=== PATIENT | male | born 1970 | race Hispanic/Latino ===

== ENCOUNTER 2016-06-27 13:09 | Observation (INO) | payer BC, OTHER ==
[2016-06-27 13:11] VITALS: BMI 23.3
--- NOTE | 2016-06-27 13:37 | ED PDOC ---
Arrival/HPI - General Chief Complaint: Seizure Time Seen by Provider: 06/27/16 13:14 Historian: Patient, EMS - Critical Care Critical Care Minutes: 30 minutes - History of Present Illness Narrative History of Present Illness (Text): 06/27/16 13:37 A 45 year old male, who denies any past medical history, brought in by EMS to the emergency department after new onset seizure. Patient was walking at work. Seizure lasted about three minutes and EMS reports giving him glucose. Patient reports no previous episodes of seizure and states he remembers episode and being caught, no head trauma. He also notes he was shaking and didn't bite tongue. EMS reported patient told them he didn't remember seizure. EMS notes no foaming at mouth. Patient reports not eating today and denies any drug or alcohol use. Patient denies any pain, fevers, cough, runny nose, nausea, recent travels, changes in stool or any other complaints at this time. Time/Duration: Prior to Arrival Symptom Onset: Sudden Symptom Course: Resolved Activities at Onset: Rest Context: Work Past Medical History - Provider Review Nursing Documentation Reviewed: Yes - Infectious Disease Hx of Infectious Diseases: None - Tetanus Immunization Tetanus Immunization: Unknown - Cardiac Hx Cardiac Disorders: No - Pulmonary Hx Respiratory Disorders: Yes (SMOKES 1 1/2 PPD) - Neurological Hx Neurological Disorder: Yes Hx Seizures: Yes (NEW ONSET 03-21-16) Other/Comment: pt denies seizures or keppra use, as per chart. - HEENT Hx HEENT Disorder: Yes (DEVIATED SEPTUM WITH SX) - Renal Hx Renal Disorder: No - Endocrine/Metabolic Hx Endocrine Disorders: No - Hematological/Oncological Hx Blood Disorders: No - Integumentary Hx Dermatological Disorder: Yes (TATTOS TO LEFT UPPER ARM) - Musculoskeletal/Rheumatological Hx Musculoskeletal Disorders: Yes (FOOT DROP LEFT FOOT WITH BRACE,L KNEE TORN MENISCUS,) Hx Falls: Yes Hx Fractures: Yes (LUMBAR 6 PER PT.) Hx Unsteady Gait: Yes - Gastrointestinal Hx Gastrointestinal Disorders: No - Genitourinary/Gynecological Hx Genitourinary Disorders: No - Psychiatric Hx Depression: No Hx Emotional Abuse: No Hx Physical Abuse: No Hx Substance Use: No (pt denies) - Anesthesia Hx Anesthesia: Yes Hx Anesthesia Reactions: No - Suicidal Assessment Feels Threatened In Home Enviroment: No Family/Social History - Physician Review Nursing Documentation Reviewed: Yes Family/Social History: No Known Family HX Smoking Status: Heavy Smoker > 10 Cigarettes Daily Hx Alcohol Use: No (pt denies) Hx Substance Use: No (pt denies) Allergies/Home Meds Allergies/Adverse Reactions: Allergies No Known Allergies Allergy (Verified 06/27/16 13:11) Review of Systems - Physician Review All systems were reviewed & negative as marked: Yes - Review of Systems Constitutional: absent: Fevers Eyes: Normal ENT: absent: Rhinorrhea Respiratory: absent: Cough Cardiovascular: Normal Gastrointestinal: absent: Stool Changes, Nausea Genitourinary Male: Normal Musculoskeletal: Normal Skin: Normal Neurological: Seizure Endocrine: Normal Hemo/Lymphatic: Normal Psychiatric: Normal Physical Exam Vital Signs Reviewed: Yes Vital Signs Temp Pulse Resp BP Pulse Ox 06/27/16 15:54 98.3 F 85 18 117/71 100 06/27/16 13:22 98.4 F 92 H 16 124/75 99 Temperature: Afebrile Blood Pressure: Normal Pulse: Regular Respiratory Rate: Normal Appearance: Positive for: Well-Appearing, Non-Toxic, Comfortable Pain Distress: None Mental Status: Positive for: Alert and Oriented X 3 Finger Stick Blood Glucose: 158 Medical Decision Making ED Course and Treatment: 06/27/16 13:34 Impression: A 45 year old male presents to emergency department after seizure. Differential Diagnosis included but are not limited to: Plan: -- EKG -- CT head -- labs -- Urinalysis -- Reassess and disposition Prior Visits: Notes and results from previous visits were reviewed. Patient last reported to emergency department on 03/21/16 for evaluation after episode of seizure. Patient was admitted to telemetry bed. Discharged on . Progress Notes: EKG: Ordered, reviewed, and independently interpreted the EKG. Rate : 100 BPM Rhythm : NSR Interpretation : No ST-segment elevations or depressions, no T-wave inversions, normal intervals. Comparison : No previous EKG for comparison. CT head: Creator : Marisa Sultana IMPRESSION: No evidence of acute intracranial hemorrhage intracranial collection mass effect or midline shift. No significant interval change since the previous exam. - Lab Interpretations Lab Results: 06/27/16 13:30 06/27/16 13:30 Lab Results 06/27/16 14:30: Urine Opiates Screen Negative, Urine Methadone Screen Negative, Ur Barbiturates Screen Negative, Ur Phencyclidine Scrn Negative, Ur Amphetamines Screen Negative, U Benzodiazepines Scrn Negative, U Oth Cocaine Metabols Negative, U Cannabinoids Screen Negative 06/27/16 14:30: Urine Color Straw, Urine Appearance Clear, Urine pH 7.0, Ur Specific [place] <= 1.005, Urine Protein Negative, Urine Glucose (UA) Negative, Urine Ketones Negative, Urine Blood Negative, Urine Nitrate Negative, Urine Bilirubin Negative, Urine Urobilinogen 0.2, Ur Leukocyte Esterase Negative 06/27/16 14:22: Magnesium 1.9 06/27/16 13:30: Alcohol, Quantitative < 10 06/27/16 13:30: Sodium 132, Potassium 3.2 L, Chloride 93 L, Carbon Dioxide 27, Anion Gap 15, BUN 4 L, Creatinine 0.6, Est GFR ( Amer) > 60, Est GFR (Non -Af Amer) > 60, Random Glucose 150 H, Calcium 9.6, Total Bilirubin 1.3, AST 69 H , ALT 47, Alkaline Phosphatase 79, Total Protein 6.8, Albumin 4.1, Globulin 2.8 , Albumin/Globulin Ratio 1.5 06/27/16 13:30: WBC 5.2, RBC 4.21, Hgb 14.0, Hct 39.9 L, MCV 94.8, MCH 33.3, MCHC 35.1, RDW 13.1, Plt Count 135, MPV 9.5, Gran % 77.3 H, Lymph % (Auto) 16.8 L, [place] % (Auto) 5.7, Eos % (Auto) 0.2 L, Baso % (Auto) 0.0, Gran # 4.04, Lymph # 0.9 L, [place] # 0.3, Eos # 0.0, Baso # 0.00 I have reviewed the lab results: Yes - RAD Interpretation Radiology Orders: 06/27/16 13:15 HEAD W/O CONTRAST [CT] Stat - EKG Interpretation Interpreted by ED Physician: Yes Type: 12 lead EKG - Medication Orders Current Medication Orders: Discontinued Medications Sodium Chloride (Sodium Chloride 0.9%) 500 mls @ 999 mls/hr IV .Q31M STA Stop: 06/27/16 15:42 Last Admin: 06/27/16 15:39 Dose: 999 mls/hr Levetiracetam (Keppra) 250 mg PO STAT STA Stop: 06/27/16 15:28 Last Admin: 06/27/16 16:11 Dose: 250 mg Potassium Chloride (K-Dur 20 Meq Er Tab) 40 meq PO STAT STA Stop: 06/27/16 14:17 Last Admin: 06/27/16 14:27 Dose: 40 meq ED OBSERVATION Date of observation admission: 06/27/16 Time of observation admission: 13:30 - Observation admission statement Patient is being placed in observation because:: new onset seizure - Goals of Observation Goals of observation are:: symptom control - Progress Note Progress Note: 06/27/16 13:34 Impression: A 45 year old male presents to emergency department after seizure. Differential Diagnosis included but are not limited to: seizure disorder Plan: -- EKG -- CT head -- labs -- Urinalysis -- Reassess and disposition Prior Visits: Notes and results from previous visits were reviewed. Patient last reported to emergency department on 03/21/16 for evaluation after episode of seizure. Patient was admitted to telemetry bed. Discharged on . Progress Notes: EKG: Ordered, reviewed, and independently interpreted the EKG. Rate : 100 BPM Rhythm : NSR Interpretation : No ST-segment elevations or depressions, no T-wave inversions, normal intervals. Comparison : No previous EKG for comparison. 06/27/16 14:02 CT head: Creator : Marisa Sultana IMPRESSION: No evidence of acute intracranial hemorrhage intracranial collection mass effect or midline shift. No significant interval change since the previous exam. 06/27/16 16:31 Patient was observed in the ED for 4 hours since seizure. He has not had any seizures. He feels comfortable and has no complaints. After another interview of questions, he states he does remember now eariler in the year that he had a seizure. He did complete the keppra medication at that time and f/u with Neurology. I discussed this case with Dr. Remedios Velez who states patient did get an EEG then and it was normal. Dr. Velez advised that we start him again on Keppra 250mg BID and to have him follow up with him as an outpatient. Patient feels comfortable with that plan. He feels reliable enough to follow up. Patient is not exhibiting any signs of alcohol withdrawal. He states that he only drinks on occasion now. On exam he has not exhibited any tremors or tongue fasciculation. He is ambulating with a steady gait. He is AAOx3 and not confused. He has capacity to make decisions. His brother was with him in the ED. Patient also understands that he should not drive or operate heavy machinery until he gets cleared by Neurology. He should return to the ED if he develops another seizure. - Scribe Statement The provider has reviewed the documentation as recorded by the Scribe Wilbert Abbott All medical record entries made by the Scribe were at my direction and personally dictated by me. I have reviewed the chart and agree that the record accurately reflects my personal performance of the history, physical exam, medical decision making, and the department course for this patient. I have also personally directed, reviewed, and agree with the discharge instructions and disposition. Disposition/Present on Arrival - Present on Arrival Any Indicators Present on Arrival: No History of DVT/PE: No History of Uncontrolled Diabetes: No Urinary Catheter: No History of Decub. Ulcer: No History Surgical Site Infection Following: None - Disposition Have Diagnosis and Disposition been Completed?: Yes Diagnosis: Seizure Disposition: HOME/ ROUTINE Disposition Time: 16:31 Patient Plan: Discharge Patient Problems: Current Active Problems Problem Status Onset Seizure Acute Condition: IMPROVED Discharge Instructions (ExitCare): Epilepsy (ED) Additional Instructions: Mr Mendez thank you for letting us take care of you today. Your provider was Dr. Castelan. You were treated for Seizure. The emergency medical care you received today was directed at your acute symptoms. If you were prescribed any medication, please fill it and take as directed. It may take several days for your symptoms to resolve. Return to the Emergency Department if your symptoms worsen, do not improve, or if you have any other problems. Please contact your doctor or call one of the physicians/clinics you have been referred to that are listed on the Patient Visit Information form that is included in your discharge packet. Bring any paperwork you were given at discharge with you along with any medications you are taking to your follow up visit. Our treatment cannot replace ongoing medical care by a primary care provider (PCP) outside of the emergency department. Make sure to take Keppra as prescribed and follow up with Dr. Velez Neurology. Please call to make appointment because he will be expecting you. PLEASE DO NOT DRIVE OR OPERATE HEAVY MACHINE UNTIL CLEARED BY NEUROLOGY. Thank you for allowing the [facility] team to be part of your care today. If you had an X-Ray or CT scan: A Radiologist will review the ED reading if any change in treatment is needed we will contact you. If you had a blood, urine, or wound culture: It will take several days for the results, if any change in treatment is needed we will contact you. If you had an STI test: It will take 48 hours for the results. Please call after 1 week if you have not heard back. Prescriptions: Levetiracetam [Keppra] 250 mg PO BID #60 tablet Referrals: Mainor Page MD [Primary Care Provider] - Follow up with primary Forms: WORK NOTE
[2016-06-27 13:39] LABS: ADD MANUAL DIFF? NO
[2016-06-27 13:56] LABS: ALB/GLOB RATIO 1.5 (1.1-1.8); ALKALINE PHOSPHATASE 79 U/L (38-133); ALT/SGPT 47 U/L (7-56); AST/SGOT 69 U/L (15-59); BILIRUBIN,TOTAL 1.3 mg/dL (0.2-1.3); BLOOD UREA NITROGEN 4 mg/dL (7-21); CALCIUM 9.6 mg/dL (8.4-10.5); CARBON DIOXIDE 27 mmol/L (21-33); CHLORIDE 93 mmol/L (98-107); GFR AFRICAN-AMERICAN > 60; GLUCOSE,RANDOM 150 mg/dL (70-110); POTASSIUM 3.2 mmol/L (3.6-5.0); SODIUM 132 mmol/L (132-148); TOTAL PROTEIN 6.8 g/dL (5.8-8.3)
[2016-06-27 14:02] LABS: EOS % 0.2 % (1.5-5.0); GRAN # 4.04 (1.4-6.5); GRAN % 77.3 % (50.0-68.0); HEMATOCRIT 39.9 % (42.0-52.0); LYMPH # 0.9 (1.2-3.4); LYMPH % 16.8 % (22.0-35.0); MEAN CELL VOLUME 94.8 fL (80.0-105.0); MEAN CORPUSCULAR HEMOGLOBIN 33.3 pg (25.0-35.0); MEAN CORPUSCULAR HGB CONC 35.1 g/dl (31.0-37.0); MEAN PLATELET VOLUME 9.5 fl (7.0-11.0); MONO # 0.3 (0.1-0.6); MONO % 5.7 % (1.0-6.0); PLATELET COUNT 135 [, 10^3/uL] (120.0-450.0); RED CELL DISTRIBUTION WIDTH 13.1 % (11.5-14.5); WHITE BLOOD COUNT 5.2 [, 10^3/ul] (4.5-11.0)
--- NOTE | 2016-06-27 14:03 | CT ---
PROCEDURE: CT HEAD WITHOUT CONTRAST. HISTORY: new onset seizure vs syncope COMPARISON: Comparison is made to the previous study dated 03/21/2016 TECHNIQUE: Axial computed tomography images were obtained through the head/brain without intravenous contrast. Radiation dose: Total exam DLP = 801.60 mGy-cm. This CT exam was performed using one or more of the following dose reduction techniques: Automated exposure control, adjustment of the mA and/or kV according to patient size, and/or use of iterative reconstruction technique. FINDINGS: HEMORRHAGE: No intracranial hemorrhage. BRAIN: No mass effect or edema. No atrophy or chronic microvascular ischemic changes. VENTRICLES: Unremarkable. No hydrocephalus. CALVARIUM: Unremarkable. PARANASAL SINUSES: Unremarkable as visualized. No significant inflammatory changes. MASTOID AIR CELLS: Unremarkable as visualized. No inflammatory changes. OTHER FINDINGS: None. IMPRESSION: No evidence of acute intracranial hemorrhage intracranial collection mass effect or midline shift. No significant interval change since the previous exam.
[2016-06-27] MEDS ORDERED: Potassium Chloride 20 mEq ER Tab PO STA (14:16)
[2016-06-27 14:53] LABS: URINE BILIRUBIN NEGATIVE (NEGATIVE); URINE BLOOD NEGATIVE (NEGATIVE); URINE GLUCOSE (UA) NEGATIVE (NEGATIVE); URINE KETONE NEGATIVE (NEGATIVE); URINE LEUKOCYTE ESTERASE NEGATIVE Leu/uL (NEGATIVE); URINE PROTEIN NEGATIVE mg/dL (<30 mg/dL); URINE UROBILINOGEN 0.2 E.U./dL (<1 E.U./dL)
[2016-06-27 14:55] LABS: URINE APPEARANCE CLEAR (CLEAR); URINE COLOR STRAW (YELLOW)
[2016-06-27] MEDS ORDERED: Sodium Chloride 0.9% 500 ML IV STA (15:12)
[2016-06-27 15:54] VITALS: BP 117/71; PULSE 85; RESP 18; TEMP 98.3; O2SAT 100
--- NOTE | 2016-06-28 07:55 | CARD ---
APPROVED REPORT EKG Measurement Heart [id number] ID [id number] <Conclusion> Normal sinus rhythm Rightward axis PRWP V 1 - 6 Prolonged QTc
== END 2016-06-27 16:26 | disposition home or self-care (01) ==
LOC: ED 13:09 → EROBSV 13:30 → ED 16:48
PROVIDERS: ADMIT Emergency Medicine; ATTEND Emergency Medicine
DX: R56.9 Unspecified convulsions (principal)
CPT/HCPCS: 70450; 80053; 81003; 82948; 83735; 85025; 93005; 96360; 99285; G0378; G0480; J7040